=== PATIENT | female | born 1990 | race Caucasian/White ===

== ENCOUNTER → 2017-04-26 | Outpatient (REF) | payer BC | LOC: M SFHCLERA 14:44 | DX: J02.9 Acute pharyngitis, unspecified (principal) ==

== ENCOUNTER → 2017-07-13 | Outpatient (REF) | payer BC | LOC: M SFHCLERA 10:38 | DX: J02.9 Acute pharyngitis, unspecified (principal) ==

== ENCOUNTER → 2018-12-22 | Outpatient (REF) | payer OTHER | LOC: M SFHCLERA 18:17 | PROVIDERS: ATTEND Physician Assistant | DX: J02.9 Acute pharyngitis, unspecified (principal) ==

== ENCOUNTER → 2019-03-22 | Outpatient (REF) | payer OTHER | LOC: M SFHCLERA 11:06 | PROVIDERS: ATTEND Nurse Practitioner Family | DX: J02.9 Acute pharyngitis, unspecified (principal) ==